=== PATIENT | female | born 1955 | race Caucasian/White ===

== ENCOUNTER 2017-01-22 21:35 | Inpatient (IN) | payer BC ==
[~2017-01-22] VITALS: Ht 175.3 cm; Wt 126.3 kg
[~2017-01-22 21:35] MED LIST: CARDIZEM CD120 M1 PO; CELEXA20 MG PO; CITALOPRAM HBR10 MG PO; IRON325 M1 PO; LIPITOR40 MG PO; LOPRESSOR50 MG PO; METOPROLOL TART25 MG PO; ST. JOSEPH ASPI81 MG PO; SUMATRIPTAN SUC50 MG PO; TAZTIA XT120 M1 PO; XARELTO20 MG PO; ZOFRAN4 MG PO
[2017-01-23] MEDS ORDERED: IMITREX50 MG PO (08:03)
[2017-01-23 08:13] VITALS: BP 135/71
[2017-01-23 08:41] LABS: ADD MIUA? YES; BILIRUBIN NEGATIVE; BLOOD SMALL; COLOR YELLOW ((YELLOW)); GLUCOSE (STRIP) NEGATIVE; KETONES NEGATIVE; LEUKOCYTES LARGE; NITRITE NEGATIVE; PROTEIN (STRIP) NEGATIVE; SPECIFIC GRAVITY 1.017 (1.000-1.030); UROBILINOGEN 0.2 MG/DL (0.2-1.0)
[2017-01-23 08:54] LABS: BACTERIA RARE /HPF; EPITHELIAL CELLS 1+ /HPF; MUCUS TRACE /LPF; RED BLOOD CELLS 0-5 /HPF (0-5); WHITE BLOOD CELLS 0-5 /HPF (0-5)
[2017-01-23 13:33] VITALS: BP 109/55
[2017-01-23 15:50] VITALS: BP 112/61
[2017-01-23 19:51] VITALS: BP 109/51
[2017-01-24 00:22] VITALS: BP 103/53
[2017-01-24 04:10] VITALS: BP 96/50
[2017-01-24 07:09] VITALS: BP 138/64
[2017-01-24 10:07] LABS: HEMATOCRIT 36.1 % (36.0-46.0)
[2017-01-24 11:42] VITALS: BP 116/59
[2017-01-24 15:52] VITALS: BP 120/56
[2017-01-24 20:18] VITALS: BP 132/62
[2017-01-25 00:03] VITALS: BP 131/62
[2017-01-25 04:21] VITALS: BP 130/60
[2017-01-25 08:09] VITALS: BP 118/61
[2017-01-25] MEDS ORDERED: BISAC-EVAC10 MG PR (09:52)
[2017-01-25] MEDS ORDERED: HYDROCODON-ACE1 EAC7 PO (09:53)
[2017-01-25] MEDS ORDERED: ELIQUIS2.5 MG PO (09:53)
[2017-01-25 11:43] VITALS: BP 125/60
[2017-01-25 15:51] VITALS: BP 123/59
== END 2017-01-25 16:20 | DRG 470 ==
LOC: ENRESERV 21:35 → 2SOUTH 01-23 06:53 → 3WEST 01-23 13:23 → 2SOUTH 01-23 14:12 → 3WEST 01-25 16:20
PROVIDERS: Orthopaedic Surgery; Physician Assistant
PROC: 0SRD0J9 Replacement of Left Knee Joint with Synthetic Substitute, Cemented, Open Approach (ICD-10-PCS; principal; 2017-01-23)
DX: M17.12 Unilateral primary osteoarthritis, left knee (principal); Z68.41 Body mass index [BMI] 40.0-44.9, adult; I25.10 Atherosclerotic heart disease of native coronary artery without angina pectoris; M25.562 Pain in left knee; E66.9 Obesity, unspecified; R26.2 Difficulty in walking, not elsewhere classified; I48.0 Paroxysmal atrial fibrillation; I07.1 Rheumatic tricuspid insufficiency
CPT/HCPCS: 81003; 85014; 85018; 87086; 97530 GO; C1713; J0131; J0690; J1100; J1170; J1885; J2250; J2405; J3010; J7050; J7120; L1820; S0020